=== PATIENT | female | born 1990 | race Caucasian/White ===

== ENCOUNTER 2022-06-03 18:46 | Emergency (ER) | payer OTHER, SELFPAY ==
[2022-06-03 18:58] VITALS: BP 104/61; PULSE 84; RESP 20; TEMP 36.8; O2SAT 99
[2022-06-03] MEDS: TETANUS,DIPHTHERIA,AC PERTUSSIS ADULT 0.5 ML (ADACEL) IM (19:10)
--- NOTE | 2022-06-03 19:10 | ED.GENADULT ---
HPI - General Adult General Chief complaint: Unspecified Stated complaint: Dog bite left hand Source: patient Mode of arrival: ambulatory Limitations: no limitations History of Present Illness HPI narrative: This a 31-year-old female that presents with a dog bite to her left hand puncture wounds 2 distinct areas non gaping patient is not up-to-date with her tetanus occurred earlier this afternoon by her pet dog. Currently there is some pain and discomfort with no numbness or tingling has good range of motion in her hands and fingers. Onset (ago): hour(s) Location: upper extremity Severity: mild Severity scale (1-10): 4 Quality: aching Related Data Allergies Allergy/AdvReac Type Severity Reaction Status Date / Time sertraline Allergy Unknown severe Verified 05/18/20 10:35 nightmares Review of Systems Review of Systems: All systems reviewed & are unremarkable except as noted in HPI and below PMFSH Past Medical History Medical History (Updated 06/03/22 @ 19:15 by Jadiel Van MD) Asthma Depressive disorder, not elsewhere classified Mastitis Family History Family History Grandparent Diabetes mellitus Carcinoma of colon Father Family history of cardiovascular disease Social History Social History Smoking status: Never smoker Alcohol intake: current Exam Const: General: cooperative, healthy appearing, comfortable, no acute distress and well developed HENMT: Face and sinus: normal facial exam Eyes: General: appearance normal, both eyes and all related structures Chest: Chest palpation & inspection: normal inspection of the chest Resp: Effort & Inspection: normal respiratory effort Cardio: Rate: regular rate Rhythm: regular rhythm GI: Inspection: normal to inspection Skin: General skin exam: normal color Other: Two small puncture wounds left hand non gaping Neuro: General: oriented to person, oriented to place and oriented to time Extrem: General: normal to inspection, full ROM and capillary refill normal Hand/finger images: 1. puncture wound 2. puncture Psych: Appearance: grossly normal Mental Status: mental status grossly normal Course Course Emergency Course: patient updated with her tetanus and was given a dose of augment Vital Signs Vital signs: Vital Signs Temperature 36.8 C 06/03/22 18:58 Pulse Rate 84 06/03/22 18:58 Respiratory Rate 20 06/03/22 18:58 Blood Pressure 104/61 06/03/22 18:58 Pulse Oximetry 99 06/03/22 18:58 Oxygen Delivery Room Air 06/03/22 18:58 Temperature 36.8 C 06/03/22 18:58 Pulse Rate 84 06/03/22 18:58 Respiratory Rate 20 06/03/22 18:58 Blood Pressure 104/61 06/03/22 18:58 Pulse Oximetry 99 06/03/22 18:58 Oxygen Delivery Room Air 06/03/22 18:58 Medical Decision Making Vital Signs Vital Signs: Vital Signs Temperature 36.8 C 06/03/22 18:58 Pulse Rate 84 06/03/22 18:58 Respiratory Rate 20 06/03/22 18:58 Blood Pressure 104/61 06/03/22 18:58 Pulse Oximetry 99 06/03/22 18:58 Oxygen Delivery Room Air 06/03/22 18:58 Temperature 36.8 C 06/03/22 18:58 Pulse Rate 84 06/03/22 18:58 Respiratory Rate 20 06/03/22 18:58 Blood Pressure 104/61 06/03/22 18:58 Pulse Oximetry 99 06/03/22 18:58 Oxygen Delivery Room Air 06/03/22 18:58 Critical Care Time Critical Care Time Critical Care Time: No Discharge Plan Discharge Clinical Impression: Dog bite, Puncture wound Patient Disposition: Home, Self-Care Condition: Stable Instructions: Antibiotic Form, Animal Bite (ED), Puncture Wound (ED) Additional Instructions: take medicine as prescribed and follow-up primary care physician if symptoms persist or worsen. Prescriptions: New amoxicillin-pot clavulanate [Augmentin] 500-125 mg tablet 1 tablet PO TID Qty: 2
[2022-06-03] MEDS: AMOXICILLIN/CLAVULANATE K 875-125 MG TAB 1 TABLET PO (19:15)
[2022-06-03] MEDS: KETOROLAC 10 MG TABLET PO (19:22)
[2022-06-03 19:24] VITALS: BP 111/88; PULSE 88; RESP 20; TEMP 36.7; O2SAT 99
== END 2022-06-03 19:27 | disposition home or self-care (01) ==
PROVIDERS: Emergency Provider Emergency Medicine; PCP Family Medicine
DX: S61.251A Open bite of left index finger without damage to nail, initial encounter (principal); S61.258A Open bite of other finger without damage to nail, initial encounter; J45.909 Unspecified asthma, uncomplicated; F32.A Depression, unspecified; W54.0XXA Bitten by dog, initial encounter
CPT/HCPCS: 90471; 90715; 99282; A9270

== ENCOUNTER → 2023-03-07 07:36 | Outpatient (CLI) | payer OTHER, SELFPAY ==
--- NOTE | ~2023-03-07 | MMUS_ITS ---
EXAMINATION: MM diagnostic danilo BI w miguel a, US breast BI limited HISTORY: Palpable lump in the upper outer quadrant of the left breast and history of bilateral nipple discharge TECHNIQUE: Craniocaudal, mediolateral, and mediolateral oblique 3-D tomosynthesis images of the gillian ts were performed and synthetic 2-D images were generated. CAD analysis was submitted and interpreted . High resolution limited bilateral breast ultrasound was performed. COMPARISON: None, baseline BREAST PARENCHYMAL COMPOSITION: The breasts are heterogeneously dense, which may obscure small masses . FINDINGS: MAMMOGRAPHIC FINDINGS: Right breast: No suspicious mass, calcification, or architectural distortion are identified to sugges t malignancy. No mammographic correlate is identified for the patient's right nipple discharge. Left breast: There are multiple obscured, low density masses in the upper outer quadrant of the left breast which measure up to 1.8 cm and correspond to the areas of palpable concern. No suspicious calc ification or architectural distortion are identified. ULTRASOUND: Right breast: There is a 5 mm cyst near the nipple of the right breast. No suspicious cystic or solid mass is identified. Left breast: There are multiple cysts of the left breast corresponding to the areas of palpable remy rn. The largest measures 2 cm at the 3:00 location, 5 cm from the nipple. There is a 7 mm x 3 mm oval , circumscribed, parallel, hypoechoic mass with no posterior features or internal vascularity at the 12:00 location of the left breast near the nipple. A 6 mm x 2 mm mass with similar sonographic featur es is noted at the 1:00 location, 3 cm from the nipple in the left breast. IMPRESSION: 1. Multiple cysts in the upper outer quadrant of the left breast in the area of palpable concern. Two sonographically detected masses described at the left breast are probably benign but follow-up jesse smalls left breast ultrasound in six months is recommended. 2. No mammographic or sonographic correlate is identified in either breast for the patient's reported nipple discharge. Recommend continued clinical follow-up and consider breast surgical evaluation. BI-RADS category 3, probably benign findings. Reviewed, dictated and finalized at location A. MACEUTICAL SCIENTIST IMPRESSION: 1. Multiple cysts in the upper outer quadrant of the left breast in the area of palpable concern. Two sonographically detected masses described at the left br east are probably benign but follow-up targeted left breast ultrasound in [facility] is recommended. 2. No mammographic or sonographic correlate is identified in either breast for the patient's reported nipple discharge. Recommend continued clinical follow-up and consider breast surgical evaluation. BI-RADS category 3, probably benign findings. IMPRESSION: 1. Multiple cysts in the upper outer quadrant of the left breast in the area of palpable concern. Two sonographically detected masses described at the left br east are probably benign but follow-up targeted left breast ultrasound in [facility] is recommended. 2. No mammographic or sonographic correlate is identified in either breast for the patient's reported nipple discharge. Recommend continued clinical follow-up and consider breast surgical evaluation. BI-RADS category 3, probably benign findings.
--- NOTE | ~2023-03-07 | US_ITS ---
Pelvic ultrasound. Clinical History: Pelvic pain Technique: Realtime transabdominal scanning of the pelvis was performed. Color flow Doppler and Doppl er spectral analysis were performed. Findings: The uterus is anteverted. The endometrial stripe has a thickness of 11 mm. No focal mass i s identified. The right ovary measures 3.3 x 3.5 x 2.2 cm. No significant right ovarian or adnexal mass is seen. The left ovary measures 3.5 x 1.8 x 1.8 cm. No significant left ovarian or adnexal mass is seen. There is no evidence of free fluid in the cul de sac. Impression: Unremarkable pelvic ultrasound. Reviewed, dictated and finalized at location . E LINING MAKER Impression: Unremarkable pelvic ultrasound.
== END ==
PROVIDERS: PCP Nurse Practitioner; Visit Provider Nurse Practitioner
DX: R10.2 Pelvic and perineal pain (principal); N92.6 Irregular menstruation, unspecified; N60.12 Diffuse cystic mastopathy of left breast
CPT/HCPCS: 76642; 76856; 77062; 77066; G0279

== ENCOUNTER 2023-09-07 08:05 | Outpatient (CLI) | payer OTHER, SELFPAY ==
--- NOTE | ~2023-09-07 | US_ITS ---
EXAMINATION: US breast LT limited HISTORY: Six-month follow-up TECHNIQUE: High resolution limited left breast ultrasound was performed. COMPARISON: 03/07/2023 FINDINGS: Scanning of the left upper outer quadrant was performed. There are multiple simple breast cysts, larg est of which measures 1.6 x 0.7 x 1.4 cm. There is a 7 mm hypoechoic, wider than tall well-circumscri bed probable solid mass, which is unchanged. There is additional probable 1.1 x 0.2 x 1.1 cm hypoecho ic circumscribed wider than tall mass. These are both located at the 2:00 position. IMPRESSION: Benign-appearing lesions, as above, as well as multiple breast cysts, in the upper outer left breast quadrant. BI-RADS Category 2: Benign finding(s). Reviewed, dictated and finalized at location M. IMPRESSION: Benign-appearing lesions, as above, as well as multiple breast cysts, in the u pper outer left breast quadrant. BI-RADS Category 2: Benign finding(s).
== END 2023-09-07 08:06 ==
LOC: MICIMG 08:06
PROVIDERS: PCP Family Medicine; Visit Provider Obstetrics & Gynecology Gynecology
DX: R92.8 Other abnormal and inconclusive findings on diagnostic imaging of breast (principal)
CPT/HCPCS: 76642